=== PATIENT | male | born 1970 | race Caucasian/White ===

== ENCOUNTER → 2019-05-16 10:01 | Outpatient (POV) | payer MEDICAID, SELFPAY ==
[2019-05-16 10:19] VITALS: BP 153/96; PULSE 60; RESP 18; O2SAT 98; BMI 25.0
--- NOTE | 2019-05-16 11:33 | HMH.PMCON ---
Assessment and Plan (1) Degenerative disc disease Current visit: Yes Status: Acute Category: Medical (2) Degenerative disc disease, lumbar Current visit: Yes Status: Acute Category: Medical Code(s): M51.36 - Other intervertebral disc degeneration, lumbar region (3) Degenerative disc disease, cervical Current visit: Yes Status: Acute Category: Medical Code(s): M50.30 - Other cervical disc degeneration, unspecified cervical region - Assessment and plan all Dx Assessment and Plan for all problems:: We will send the patient for drug screen if it comes back appropriate will give him gabapentin 300 mg 1 p.o. 3 times daily. He will go for his MRI tomorrow and we will follow-up with him after this. Patient's been instructed to call the office if he has any issues prior to his next appointment. We specifically discussed risk factors for Covid-19 including age, heart or lung disease, diabetes, immunosuppression and travel. We also discussed that NSAIDs may worsen Covid-19 infection symptoms and that they should not be used to treat Covid-19 symptoms. Patient was also informed that corticosteroids in any form oral or injectable will decrease immune response and may increase risk of Covid-[address] Hobbs has reviewed this patient's chart and this note and agrees with plan of care. Patient has been instructed to call the office if they have any issues prior to the next appointment. HPI - Data of Consult Consult date: 05/16/19 Requesting Physician: Jessica Solo APRN Primary Care Provider: Miguel Patricio - Consult Narrative Reason for consult: Back pain, neck pain History of present illness: Mr. Aparicio is a 49 year old male who presents today for neck and low back pain. Patient's been receiving epidurals from Dr. Duran's office. Patient wants says they do not work. Patient used to go to Dr. Humble mullins however he stopped going due to transportation. Patient has not been to pain management for quite some time. He was seen by Dr. Vamsi mayorga at one point and was suggested a neurostimulator however he had some concerns in regards to having a permanent implant. Patient is currently not on any narcotic medications we did discuss potentially adding gabapentin to his regimen. He does have an MRI scheduled for tomorrow. CC: Jessica Solo APRN [facility] History I have reviewed the patient's past medical history: Yes Medical History: Reports:: Hypertension Denies:: Cancer, Diabetes Mellitus Type 1, Diabetes Mellitus Type 2, MRSA *Have you ever received a pneumonia vaccine?: Yes *Have you received a flu vaccine this season?: Yes Amputation: No Fractures: Yes - *Social History Smoking Status: Never smoker Alcohol Intake: never *Occupational Status:: other Housing: house *Travel in the last 8 weeks: None Family Hx:: Unable to obtain Review of Systems - Review of Systems ROS General: no recent weight change, no fever, no sleep disturbances Respiratory: no cough, no shortness of air, no recurring pulmonary infections Cardiovascular/Peripheral Vascular: No chest pain, No palpitations, no edema, no shortness of breath. Gastrointestinal: no new onset incontinence, normal bowel movements reported Genitourinary: no new onset incontinence Musculoskeletal: Neck pain, back pain Psychiatric: normal mood/ affect, [denies depression], [denies anxiety] Neurological: [denies new onset weakness in extremities], [denies new onset balance issues] Objective Vital signs: Pulse Resp BP Pulse Ox 60 18 153/96 H 98 05/16/19 10:19 05/16/19 10:19 05/16/19 10:19 05/16/19 10:19 Narrative: Physical Exam General: Alert and oriented x3, no acute distress, pleasant and cooperative, [on room air] Lungs: Resps E/U, Symmetrical chest expansion, Eyes: PERRL Musculoskeletal: Flexion and extension of lumbar and cervical spine somewhat guarded secondary to pain, deep tend
[2019-05-16 19:34] LABS: Amphetamine/Metha Screen,Urine Negative ng/ml (<1000); Benzodiazepines Screen,Urine Negative ng/ml (<200)
[2019-05-16 19:35] LABS: Barbiturates Screen,Urine Negative ng/ml (<200)
[2019-05-16 19:36] LABS: Cannabinoid Screen,Urine Positive ng/ml (<50); Cocaine Screen,Urine Negative ng/ml (<300)
[2019-05-16 19:37] LABS: Methadone Screen,Urine Negative ng/ml (<300)
[2019-05-16 19:38] LABS: Opiate Screen,Urine Negative ng/ml (<300); Phencyclidine Screen,Urine Negative ng/ml (<25)
[2019-05-19 14:22] LABS: Opiates Negative (Cutoff=100)
== END ==
PROVIDERS: PCP Pediatrics; Visit Provider Clinical Nurse Specialist Family Health
DX: M51.36 Other intervertebral disc degeneration, lumbar region (principal); M50.30 Other cervical disc degeneration, unspecified cervical region; Z79.899 Other long term (current) drug therapy
CPT/HCPCS: 80305; 80361; 80365; 99212; G0480

== ENCOUNTER → 2019-05-29 08:58 | Outpatient (POV) | payer MEDICAID, SELFPAY ==
[2019-05-29 09:39] VITALS: BP 158/93; PULSE 67; RESP 18; O2SAT 99; BMI 25.0
--- NOTE | 2019-05-29 12:56 | P.CONS_ITS ---
[facility] Pain Management SOAP Note Subjective:: Patient is a 49-year-old who presents today to discuss his long-term low back and neck pain. Patient is from Dr. Duran's office where he was receiving epidurals in his neck however now he states that they are going to move forward with surgery on his neck. Patient did test positive for marijuana at his last visit. We will not be prescribing any controlled substances to him. Patient is receiving gabapentin from Dr. Luis veliz. Patient states that he would like to go forwards with some epidural injections in his low back. He does have an updated MRI showing some mild disc bulges and some degenerative changes. He does have a broad-based midline disc protrusion at L4-L5. Patient states that the pain is limiting his activities of daily living and ability to care for himself. ROS General: no recent weight change, no fever, no sleep disturbances Respiratory: no cough, no shortness of air, no recurring pulmonary infections Cardiovascular/Peripheral Vascular: No chest pain, No palpitations, no edema, no shortness of breath. Gastrointestinal: no new onset incontinence, normal bowel movements reported Genitourinary: no new onset incontinence Musculoskeletal: Back pain, leg pain Psychiatric: normal mood/ affect, Neurological: [denies new onset weakness in extremities], [denies new onset balance issues] Objective:: Physical Exam General: Alert and oriented x3, no acute distress, pleasant and cooperative, [on room air] Lungs: Resps E/U, Symmetrical chest expansion, Eyes: PERRL Musculoskeletal: Flexion and extension of lumbar spine somewhat guarded secondary to pain, deep tendon reflexes normal, strength in upper and lower extremities [5/5], [abnormal gait noted] Neurological: speech clear, security escort equal, no gross sensory deficits Assessment:: Degenerative disc disease lumbar spine with lumbar radiculopathy Plan:: Move forward with an L4-L5 lumbar epidural steroid injection for the patient. He is not on any anticoagulation therapy. We specifically discussed risk factors for Covid-19 including age, heart or lung disease, diabetes, immunosuppression and travel. We also discussed that NSAIDs may worsen Covid-19 infection symptoms and that they should not be used to treat Covid-19 symptoms. Patient was also informed that corticosteroids in any form oral or injectable will decrease immune response and may increase risk of Covid-[address] Hobbs has reviewed this patient's chart and this note and agrees with plan of care. Patient has been instructed to call the office if they have any issues prior to the next appointment. Dr. Hobbs has reviewed this note and agrees with this plan of care. This note was dictated using voice recognition software and may contain errors or omissions [facility] History I have reviewed the patient's past medical history: Yes Medical History: Reports:: Hypertension Denies:: Cancer, Diabetes Mellitus Type 1, Diabetes Mellitus Type 2, MRSA *Have you ever received a pneumonia vaccine?: Yes *Have you received a flu vaccine this season?: Yes Amputation: No Fractures: Yes - *Social History Smoking Status: Never smoker Alcohol Intake: never *Occupational Status:: other Housing: house *Travel in the last 8 weeks: None Family Hx:: Unable to obtain
== END ==
PROVIDERS: Visit Provider Clinical Nurse Specialist Family Health
DX: M51.16 Intervertebral disc disorders with radiculopathy, lumbar region (principal)
CPT/HCPCS: 99212